=== PATIENT | male | born 1995 | race Caucasian/White ===

== ENCOUNTER 2016-10-21 00:44 | Emergency (ER) | payer OTHER ==
[~2016-10-21] VITALS: Ht 170.2 cm; Wt 67.0 kg
[2016-10-21] MEDS ORDERED: dayquil (01:23)
[2016-10-21] MEDS ORDERED: BENA25TA9 PO (01:23)
--- NOTE | 2016-10-21 03:03 | REP ---
Clinical: Trauma . Comparison: None . Findings: The ventricles, sulci, and cisterns are normal in position and appearance. Puga-white differentiation is maintained. No acute intracranial hemorrhage, mass/mass effect, pathology or trauma/injury. No evidence for acute infarction. No extra-axial fluid collection. Calvarium is intact. Mucoperiosteal changes involving the ethmoid and maxillary sinuses consistent with sinusitis. Impression: Normal noncontrast head CT. No evidence for acute intracranial pathology or trauma/injury. Mild sinus disease. Signed by Jose Luis Allen MD 10/21/2016 02:55 A
[2016-10-21] MEDS ORDERED: DERMABOND TOPICAL SKIN ADHESIVE TOP ONE (03:15)
[2016-10-21 03:56] VITALS: BP 135/83
== END 2016-10-21 03:57 | disposition home or self-care (01) ==
LOC: M ED 02:25
DX: S01.112A Laceration without foreign body of left eyelid and periocular area, initial encounter (principal); W22.8XXA Striking against or struck by other objects, initial encounter; Y92.89 Other specified places as the place of occurrence of the external cause; Y93.89 Activity, other specified; Y99.0 Civilian activity done for income or pay; J45.909 Unspecified asthma, uncomplicated; F17.210 Nicotine dependence, cigarettes, uncomplicated